=== PATIENT | male | born 1955 | race Caucasian/White ===

== ENCOUNTER 2022-11-22 10:57 | Emergency (ER) | payer MEDICARE, MEDICAID ==
[~2022-11-22] VITALS: Ht 180.3 cm; Wt 100.0 kg
[2022-11-22] MEDS ORDERED: POVIDONE-IODINE 10% 15 ML SOLUTION UD TP ONE (13:00)
[2022-11-22] MEDS ORDERED: LIDOCAINE 1%/EPI 1:200,000/PF 30 ML VIAL PERC ONE (13:00)
[2022-11-22] MEDS ORDERED: SULF-261 PO (14:53)
[2022-11-22] MEDS ORDERED: CEPH-558 PO (14:53)
[2022-11-22] MEDS ORDERED: IBUP-1492 PO (14:54)
[2022-11-22 15:00] VITALS: BP 128/82
[2022-11-22] MEDS ORDERED: PERTUSS(ACELL),DIPH,TET VAC/PF 0.5 ML SYRINGE IM. ONE (15:15)
== END 2022-11-22 15:44 | disposition home or self-care (01) ==
LOC: EMS 10:57
DX: L02.212 Cutaneous abscess of back [any part, except buttock and flank] (principal)
CPT/HCPCS: 99283; 10060; 90715; 90471; J3490

== ENCOUNTER 2022-11-24 06:58 | Emergency (ER) | payer MEDICARE, MEDICAID ==
[~2022-11-24] VITALS: Ht 180.3 cm; Wt 84.1 kg
[~2022-11-24 06:58] MED LIST: CEPH-558 PO; IBUP-1492 PO; SULF-261 PO
[2022-11-24 08:45] VITALS: BP 131/76
== END 2022-11-24 09:25 | disposition home or self-care (01) ==
LOC: EMS 06:59
DX: S30.91XD Unspecified superficial injury of lower back and pelvis, subsequent encounter (principal); L02.212 Cutaneous abscess of back [any part, except buttock and flank]; X58.XXXD Exposure to other specified factors, subsequent encounter
CPT/HCPCS: 99281; Z7502

== ENCOUNTER 2022-11-26 07:27 | Emergency (ER) | payer MEDICARE, MEDICAID ==
[~2022-11-26] VITALS: Ht 180.3 cm; Wt 109.1 kg
[2022-11-26 07:44] VITALS: BP 129/58
== END 2022-11-26 08:28 | disposition home or self-care (01) ==
LOC: EMS 07:32
DX: L02.212 Cutaneous abscess of back [any part, except buttock and flank] (principal); Z48.00 Encounter for change or removal of nonsurgical wound dressing
CPT/HCPCS: 99281; Z7502

== ENCOUNTER 2022-11-28 07:58 | Emergency (ER) | payer MEDICARE, MEDICAID ==
[~2022-11-28] VITALS: Ht 180.3 cm; Wt 109.1 kg
[2022-11-28 08:01] VITALS: BP 125/59
== END 2022-11-28 09:25 | disposition home or self-care (01) ==
LOC: EMS 08:00
DX: S20.409D Unspecified superficial injuries of unspecified back wall of thorax, subsequent encounter (principal); L02.212 Cutaneous abscess of back [any part, except buttock and flank]; X58.XXXD Exposure to other specified factors, subsequent encounter
CPT/HCPCS: 99281; Z7502

== ENCOUNTER 2022-12-02 07:30 | Emergency (ER) | payer MEDICARE, MEDICAID ==
[~2022-12-02] VITALS: Ht 180.3 cm; Wt 100.9 kg
[2022-12-02 07:46] VITALS: BP 144/72
[2022-12-05] MEDS ORDERED: CEPH-558 PO (14:49)
== END 2022-12-02 10:28 | disposition home or self-care (01) ==
LOC: EMS 07:31
DX: S30.91XD Unspecified superficial injury of lower back and pelvis, subsequent encounter (principal); L02.212 Cutaneous abscess of back [any part, except buttock and flank]; X58.XXXD Exposure to other specified factors, subsequent encounter
CPT/HCPCS: 99281; Z7502